=== PATIENT | female | born 1940 | race Caucasian/White ===

== ENCOUNTER 2017-12-31 01:00 | Emergency (ER) | payer MEDICARE, OTHER ==
[~2017-12-31] VITALS: Ht 162.6 cm; Wt 59.9 kg
[2017-12-31 01:00] VITALS: BP_SYST 179
[2017-12-31] MEDS ORDERED: hydrALAZINE HCL 20 MG/ML VIAL IM ONE (01:15)
[2017-12-31] MEDS ORDERED: METOPROLOL SUCCINATE 50 MG TAB.SR.24H (TOPROL XL) PO ONE (01:15)
[2017-12-31 01:49] VITALS: BP_SYST 154
== END 2017-12-31 01:49 | disposition home or self-care (01) ==
LOC: SED 01:00
DX: I10 Essential (primary) hypertension (principal); I48.91 Unspecified atrial fibrillation; Z86.73 Personal history of transient ischemic attack (TIA), and cerebral infarction without residual deficits
CPT/HCPCS: 93005; 99283